=== PATIENT | female | born 1995 | race American Indian/Alaskan Native ===

== ENCOUNTER 2018-08-16 13:57 | Emergency (ER) | payer MEDICAID ==
[2018-08-16 14:06] VITALS: BP 138/93
--- NOTE | 2018-08-16 14:06 | Emergency Department Report ---
Blank Doc - Documentation Documentation: This is a 22-year-old female that presents with syncopal episode x1. Denies any other complaints or symptoms. This initial assessment/diagnostic orders/clinical plan/treatment(s) is/are subject to change based on patient's health status, clinical progression and re-assessment by fellow clinical providers in the ED. Further treatment and workup at subsequent clinical providers discretion. Patient/guardians urged not to elope from the ED as their condition may be serious if not clinically assessed and managed. Initial orders include: 1- Patient sent to MAIN ED for further evaluation and treatment 2- labs 3- CT head
[2018-08-16 14:57] LABS: Basophils % (Auto) 0.4 % (0.0-1.8); Eosinophils # (Auto) 0.1 K/mm3 (0.0-0.4); Eosinophils % (Auto) 1.2 % (0.0-4.3); Hematocrit 32.1 % (30.3-42.9); Hemoglobin 10.1 gm/dl (10.1-14.3); Lymphocytes # (Auto) 1.6 K/mm3 (1.2-5.4); Lymphocytes % (Auto) 21.3 % (13.4-35.0); Mean Corpuscular HGB Conc 31 % (30-34); Mean Corpuscular Volume 79 fl (79-97); Monocytes # (Auto) 0.7 K/mm3 (0.0-0.8); Monocytes % (Auto) 8.9 % (0.0-7.3); Platelet Count 313 K/mm3 (140-440); Red Blood Count 4.08 M/mm3 (3.65-5.03)
[2018-08-16 15:05] LABS: Red Cell Distribution Width 20.4 % (13.2-15.2)
[2018-08-16 15:08] LABS: INR 1.06 (0.87-1.13)
[2018-08-16 15:18] LABS: Alanine Aminotransferase 12 units/L (7-56); Albumin 3.7 g/dL (3.9-5); BUN/Creatinine Ratio 10; Blood Urea Nitrogen 7 mg/dL (7-17); Calcium 8.7 mg/dL (8.4-10.2); Hemolysis Index 1
[2018-08-16 15:21] LABS: Creatine Kinase MB < 1.0 ng/mL (0.0-4.0)
--- NOTE | 2018-08-16 15:45 | Emergency Department Report ---
ED Syncope HPI - General Chief Complaint: Syncope Stated Complaint: SYNCOPE Time Seen by Provider: 08/16/18 14:04 Source: patient - History of Present Illness Initial Comments: 22-year-old female presents to the ED following a syncopal episode at home. Patient says she has had a 2 month history of dizziness and lightheadedness. Today, patient states she was in the bathroom having a bowel movement. Patient states she became lightheaded while sitting on the toilet. She then got up and laid down across the bed approximately 5 minutes. Patient states when she stood up to walk to the next room, she then passed out. Patient reports she was told by Wilian that she has fluid on her left ear, which could be the cause of her dizziness. Patient also reports she has history of chronic migraine headaches. Timing/Prior Episodes: recent history Precipitating Factors: Positive: lightheadedness Context: sitting, standing Loss of Consciousness: brief (seconds) Current Symptoms: back to normal. denies: chest pain, headache, loss of bladder control, loss of bowel control - Related Data Allergies/Adverse Reactions: Allergies No Known Allergies Allergy (Unverified 08/16/18 14:00) Home Medications: Ambulatory Orders Butalb/Acetamin/Caff 50-325-40 [Fioricet] 1 tab PO Q6HR PRN #10 tab 08/16/18 Meclizine [Antivert] 25 mg PO TID PRN #20 tablet 08/16/18 ED Review of Systems ROS: Stated complaint: SYNCOPE Other details as noted in HPI Comment: All other systems reviewed and negative Constitutional: denies: chills, fever ENT: ear pain Respiratory: denies: shortness of breath Cardiovascular: denies: chest pain, palpitations Gastrointestinal: denies: abdominal pain, nausea, vomiting, diarrhea Neurological: vertigo. denies: headache, weakness, numbness, paresthesias ED Past Medical Hx - Past Medical History Previous Medical History?: No - Surgical History Past Surgical History?: Yes Additional Surgical History: C section - Social History Smoking Status: Never Smoker Substance Use Type: None - Medications Home Medications: Home Medications Medication Instructions Recorded Confirmed Last Taken Type Butalb/Acetamin/Caff 50-325-40 1 tab PO Q6HR PRN #10 tab 08/16/18 Unknown Rx [Fioricet] Meclizine [Antivert] 25 mg PO TID PRN #20 tablet 08/16/18 Unknown Rx ED Physical Exam - General Limitations: No Limitations General appearance: alert, in no apparent distress, obese - Head Head exam: Present: atraumatic, normocephalic - Eye Eye exam: Present: normal appearance - ENT ENT exam: Present: mucous membranes moist - Neck Neck exam: Present: normal inspection - Respiratory Respiratory exam: Present: normal lung sounds bilaterally. Absent: respiratory distress - Cardiovascular Cardiovascular Exam: Present: regular rate, normal rhythm - GI/Abdominal GI/Abdominal exam: Present: soft. Absent: distended, tenderness - Extremities Exam Extremities exam: Present: normal inspection - Neurological Exam Neurological exam: Present: alert, oriented X3, CN II-XII intact. Absent: motor sensory deficit - Psychiatric Psychiatric exam: Present: normal affect, normal mood - Skin Skin exam: Present: warm, dry, intact, normal color ED Course Vital Signs 08/16/18 14:05 Temperature 98.0 F Pulse Rate 89 Respiratory 18 Rate Blood Pressure 138/93 O2 Sat by Pulse 100 Oximetry ED Medical Decision Making - Lab Data Result diagrams: 08/16/18 14:25 08/16/18 14:25 - EKG Data -: EKG Interpreted by Ks EKG shows normal: sinus rhythm, axis, intervals, QRS complexes, ST-T waves Rate: normal - EKG Data Interpretation: no acute changes - Radiology Data Radiology results: report reviewed, image reviewed - Differential Diagnosis vertigo, arrythmia, dehydration, vasovagal Critical care attestation.: If time is entered above; I have spent that time in minutes in the direct care of this critically ill patient, excluding procedure time. ED Disposition Clinical Impression: Syncope, Vertigo Disposition: DC-01 TO HOME OR SELFCARE Is pt being admited?: No Condition: Stable Instructions: Vertigo (ED), Syncope (ED) Prescriptions: Meclizine [Antivert] 25 mg PO TID PRN #20 tablet PRN Reason: Vertigo Butalb/Acetamin/Caff 50-325-40 [Fioricet] 1 tab PO Q6HR PRN #10 tab PRN Reason: Headache Referrals: MIGDALIA GIRON MD [Referring] - as needed [facility] [Provider Group] - as needed CLARIBEL BRITO MD [Primary Care Provider] - as needed Time of Disposition: 16:58
[2018-08-16 16:40] LABS: Bilirubin,Urine NEG (Negative); Blood,Urine NEG (Negative); Color,Urine Straw (Yellow); Protein,Urine <15 mg/dL mg/dL (Negative); Urobilinogen,Urine < 2.0 mg/dL (<2.0)
--- NOTE | 2018-08-16 16:43 | Cat Scan Report ---
PROCEDURE: CT HEAD/BRAIN WO CON TECHNIQUE: Spiral CT imaging of the brain was obtained without IV contrast. HISTORY: Syncope COMPARISONS: FINDINGS: Brain: Brain density appears normal. No evidence of intracranial hemorrhage. No parenchymal hemorr flash, mass lesions or mass effect are seen. No abnormal extra-axial fluid collects or masses are see n. Ventricles: Ventricles are normal size and are midline. Bone Windows: No evidence of skull fracture. Paranasal sinuses: Visualized portions are clear.. Mastoid air cells: Clear. IMPRESSION: Negative exam. This document is electronically signed by Brady Henry MD., Aug 16 2018 04:41:07 PM ET
== END 2018-08-16 17:19 | disposition home or self-care (01) ==
LOC: ED 13:57
DX: R55 Syncope and collapse (principal); R42 Dizziness and giddiness
CPT/HCPCS: 36415; 70450; 80053; 81001; 82550; 82553; 84484; 84703; 85025; 85610; 85730; 93005; 93010

== ENCOUNTER 2018-09-12 17:04 | Emergency (ER) | payer MEDICAID ==
--- NOTE | 2018-09-12 17:17 | Emergency Department Report ---
Chief Complaint: Earache Stated Complaint: DIZZY/EAR PAIN Time Seen by Provider: 09/12/18 17:14 - HPI History of Present Illness: This is a 22 y.o. F that presents to the ER with left ear pain and dizziness. Patient states she diagnosed with Otitis media in June and didn't complete medication because she lost pills while at work. Patient states she was feeling better until today. - Exam Vital Signs: Vital Signs 09/12/18 17:15 Temperature 98.3 F Pulse Rate 114 H Respiratory 18 Rate Blood Pressure 168/100 O2 Sat by Pulse 100 Oximetry MSE screening note: Focused history and physical exam performed. Due to findings the following was ordered: This initial assessment/diagnostic orders/clinical plan/treatment(s) is/are subject to change based on patient's health status, clinical progression and re- assessment by fellow clinical providers in the ED. Further treatment and workup at subsequent clinical providers discretion. Patient/guardians urged not to elope from the ED as their condition may be serious if not clinically assessed and managed. Initial orders include: 1- Patient sent to [facility] for further evaluation and treatment ED Disposition for MSE Condition: Stable
--- NOTE | 2018-09-12 19:42 | Emergency Department Report ---
ED General Adult HPI - General Chief complaint: Earache Stated complaint: DIZZY/EAR PAIN Time Seen by Provider: 09/12/18 17:14 Source: patient, EMS Mode of arrival: Ambulatory Limitations: No Limitations - History of Present Illness Initial comments: 22-year-old female to emergency department complaining of pain to the left ear that has been off-and-on since June. She was initially seen at [facility] which she was prescribed some anti-biotics, however, she did not complete the anabiotic as directed. She was seen here as well. Earlier this month where she receives some headache medications and some meclizine. She is utilize all of the meclizine stating that her pressure is causing her to feel occasional dizziness. Dizziness occurs primarily when she turns her head or when she is in motion. Is not associated with any ringing in the ears or fever. She reports no hemoptysis or hematemesis. No odynophagia or dysphagia. No neck swelling. No numbness or tingling. No nausea or vomiting. Also reports cold symptoms with throat irritation and nasal discharge clear -: Gradual Radiation: non-radiation Quality: dull Consistency: constant Worsens with: none Associated Symptoms: denies: cough, diaphoresis, malaise, nausea/vomiting, syncope, weakness Treatments Prior to Arrival: none - Related Data Previous Rx's Medication Instructions Recorded Last Taken Type Butalb/Acetamin/Caff 50-325-40 1 tab PO Q6HR PRN #10 tab 08/16/18 Unknown Rx [Fioricet] Meclizine [Antivert] 25 mg PO TID PRN #20 tablet 08/16/18 Unknown Rx Desloratadine/Pseudoephedrine 1 each PO BID #20 tbmp.12hr 09/12/18 Unknown Rx [Clarinex-D 12 Hour Tablet] Meclizine [Antivert] 25 mg PO TID PRN #20 tablet 09/12/18 Unknown Rx predniSONE [Deltasone] 20 mg PO QDAY #7 tab 09/12/18 Unknown Rx Allergies Allergy/AdvReac Type Severity Reaction Status Date / Time No Known Allergies Allergy Verified 09/12/18 17:05 ED Review of Systems ROS: Stated complaint: DIZZY/EAR PAIN Other details as noted in HPI Constitutional: denies: chills, fever Eyes: denies: eye pain, eye discharge, vision change ENT: denies: ear pain, throat pain Respiratory: denies: cough, shortness of breath, wheezing Cardiovascular: denies: chest pain, palpitations Endocrine: no symptoms reported Gastrointestinal: denies: abdominal pain, nausea, diarrhea Genitourinary: denies: urgency, dysuria, discharge Musculoskeletal: denies: back pain, joint swelling, arthralgia Skin: denies: rash, lesions Neurological: denies: headache, weakness, paresthesias Psychiatric: denies: anxiety, depression Hematological/Lymphatic: denies: easy bleeding, easy bruising ED Past Medical Hx - Past Medical History Previous Medical History?: No - Surgical History Additional Surgical History: C section - Social History Smoking Status: Never Smoker Substance Use Type: None - Medications Home Medications: Home Medications Medication Instructions Recorded Confirmed Last Taken Type Butalb/Acetamin/Caff 50-325-40 1 tab PO Q6HR PRN #10 tab 08/16/18 Unknown Rx [Fioricet] Meclizine [Antivert] 25 mg PO TID PRN #20 tablet 08/16/18 Unknown Rx Desloratadine/Pseudoephedrine 1 each PO BID #20 tbmp.12hr 09/12/18 Unknown Rx [Clarinex-D 12 Hour Tablet] Meclizine [Antivert] 25 mg PO TID PRN #20 tablet 09/12/18 Unknown Rx predniSONE [Deltasone] 20 mg PO QDAY #7 tab 09/12/18 Unknown Rx ED Physical Exam - General Limitations: No Limitations General appearance: alert, in no apparent distress - Head Head exam: Present: atraumatic, normocephalic - Eye Eye exam: Present: normal appearance, PERRL, EOMI - ENT ENT exam: Present: normal exam, mucous membranes moist, other (neck there is bulging have small effusion. Bilateral sinus congestion with left maxillary sinus pressure percussion. Posterior pharynx clear. Tongue and uvula is midline) - Neck Neck exam: Present: normal inspection, full ROM. Absent: tenderness, lymphadenopathy - Respiratory Respiratory exam: Present: normal lung sounds bilaterally. Absent: respiratory distress, rales, rhonchi, chest wall tenderness, accessory muscle use, prolonged expiratory - Cardiovascular Cardiovascular Exam: Present: regular rate, normal rhythm. Absent: systolic murmur, diastolic murmur, rubs, gallop - GI/Abdominal GI/Abdominal exam: Present: soft, normal bowel sounds - Extremities Exam Extremities exam: Present: normal inspection, full ROM - Back Exam Back exam: Present: normal inspection - Neurological Exam Neurological exam: Present: alert, oriented X3, CN II-XII intact, normal gait - Psychiatric Psychiatric exam: Present: normal affect, normal mood - Skin Skin exam: Present: warm, dry, intact, normal color. Absent: rash ED Course Vital Signs 09/12/18 17:15 Temperature 98.3 F Pulse Rate 114 H Respiratory 18 Rate Blood Pressure 168/100 O2 Sat by Pulse 100 Oximetry Critical care attestation.: If time is entered above; I have spent that time in minutes in the direct care of this critically ill patient, excluding procedure time. ED Disposition Clinical Impression: Dizziness, Otalgia, Sinus congestion Disposition: - TO HOME OR SELFCARE Is pt being admited?: No Does the pt Need Aspirin: No Condition: Stable Instructions: Vertigo (ED), Dizziness (ED), Earache (ED), Cold Symptoms (ED) Referrals: CLARIBEL BRITO MD [Primary Care Provider] - 3-5 Days
[2018-09-12] MEDS ORDERED: TYLENOL PO ONE (20:26)
[2018-09-12] MEDS ORDERED: TYLENOL ONE (20:29)
[2018-09-13 04:53] VITALS: BP 137/85
== END 2018-09-12 21:10 | disposition home or self-care (01) ==
LOC: ED 17:04
DX: H92.02 Otalgia, left ear (principal); R42 Dizziness and giddiness; J01.00 Acute maxillary sinusitis, unspecified
CPT/HCPCS: 99283

== ENCOUNTER 2018-11-16 18:56 | Emergency (ER) | payer MEDICAID ==
--- NOTE | 2018-11-16 19:50 | Emergency Department Report ---
Blank Doc - Documentation Documentation: This is a 22-year-old female that presents with feeling anxious. Stated has h istory of this. This initial assessment/diagnostic orders/clinical plan/treatment(s) is/are subject to change based on patient's health status, clinical progression and re- assessment by fellow clinical providers in the ED. Further treatment and workup at subsequent clinical providers discretion. Patient/guardians urged not to elope from the ED as their condition may be serious if not clinically assessed and managed. Initial orders include: 1- Patient sent to [facility] for further evaluation and treatment
[2018-11-16] MEDS ORDERED: BENADRYL PO ONE (20:27)
[2018-11-16] MEDS ORDERED: REGLAN PO ONE (20:28)
--- NOTE | 2018-11-16 20:53 | Emergency Department Report ---
ED General Adult HPI - General Chief complaint: Anxiety Stated complaint: ANXIETY ATTACK Time Seen by Provider: 11/16/18 19:50 Source: patient Mode of arrival: Stretcher Limitations: No Limitations - History of Present Illness Initial comments: This is a 22-year-old female that presents with feeling anxious. Stated has history of this. states she believes anxiiety is brought on by feelings of being possible . LMP 09/21/18 state she had an but believes she may be again, pt denies abd pain no n/v no fever or chills no abd pain , vaginal pain , discharge or bleeding. There is no feeling of SI or HI Onset/Timin -: week(s) Severity scale (0 -10): 3 Quality: other (anxiety) Consistency: constant Improves with: none Worsens with: none Associated Symptoms: denies other symptoms Treatments Prior to Arrival: none - Related Data Previous Rx's Medication Instructions Recorded Last Taken Type Butalb/Acetamin/Caff 50-325-40 1 tab PO Q6HR PRN #10 tab 08/16/18 Unknown Rx [Fioricet] Meclizine [Antivert] 25 mg PO TID PRN #20 tablet 08/16/18 Unknown Rx Desloratadine/Pseudoephedrine 1 each PO BID #20 tbmp.12hr 09/12/18 Unknown Rx [Clarinex-D 12 Hour Tablet] Meclizine [Antivert] 25 mg PO TID PRN #20 tablet 09/12/18 Unknown Rx predniSONE [Deltasone] 20 mg PO QDAY #7 tab 09/12/18 Unknown Rx Nitrofurantoin Anderson/M-Cryst 100 mg PO BID 7 Days #14 capsule 11/16/18 Unknown Rx [Macrobid CAP] hydrOXYzine HCL [Atarax] 10 mg PO Q6HR #28 tablet 11/16/18 Unknown Rx Allergies Allergy/AdvReac Type Severity Reaction Status Date / Time No Known Allergies Allergy Verified 09/12/18 17:05 ED Review of Systems ROS: Stated complaint: ANXIETY ATTACK Other details as noted in HPI Constitutional: denies: chills, fever Eyes: denies: eye pain, eye discharge, vision change ENT: denies: ear pain, throat pain Respiratory: denies: cough, shortness of breath, wheezing Cardiovascular: denies: chest pain, palpitations Endocrine: no symptoms reported Gastrointestinal: denies: abdominal pain, nausea, diarrhea Genitourinary: denies: urgency, dysuria, discharge Musculoskeletal: denies: back pain, joint swelling, arthralgia Skin: denies: rash, lesions Neurological: denies: headache, weakness, paresthesias Psychiatric: anxiety. denies: depression, auditory hallucinations, visual hallucinations, homicidal thoughts, suicidal thoughts Hematological/Lymphatic: as per HPI ED Past Medical Hx - Past Medical History Hx Psychiatric Treatment: Yes (Anxiety, Panic Attack) Additional medical history: Anemia, OBesity - Surgical History Past Surgical History?: Yes Additional Surgical History: C section - Social History Smoking Status: Never Smoker Substance Use Type: None - Medications Home Medications: Home Medications Medication Instructions Recorded Confirmed Last Taken Type Butalb/Acetamin/Caff 50-325-40 1 tab PO Q6HR PRN #10 tab 08/16/18 Unknown Rx [Fioricet] Meclizine [Antivert] 25 mg PO TID PRN #20 tablet 08/16/18 Unknown Rx Desloratadine/Pseudoephedrine 1 each PO BID #20 tbmp.12hr 09/12/18 Unknown Rx [Clarinex-D 12 Hour Tablet] Meclizine [Antivert] 25 mg PO TID PRN #20 tablet 09/12/18 Unknown Rx predniSONE [Deltasone] 20 mg PO QDAY #7 tab 09/12/18 Unknown Rx Nitrofurantoin Anderson/M-Cryst 100 mg PO BID 7 Days #14 capsule 11/16/18 Unknown Rx [Macrobid CAP] hydrOXYzine HCL [Atarax] 10 mg PO Q6HR #28 tablet 11/16/18 Unknown Rx ED Physical Exam - General Limitations: No Limitations General appearance: alert, in no apparent distress - Head Head exam: Present: atraumatic, normocephalic - Eye Eye exam: Present: normal appearance, PERRL, EOMI Pupils: Present: normal accommodation - ENT ENT exam: Present: normal orophraynx, mucous membranes moist, TM's normal bilaterally, normal external ear exam - Neck Neck exam: Present: normal inspection, full ROM. Absent: tenderness, meningismus, lymphadenopathy, thyromegaly - Respiratory Respiratory exam: Present: normal lung sounds bilaterally. Absent: respiratory distress, wheezes, stridor, chest wall tenderness - Cardiovascular Cardiovascular Exam: Present: regular rate, normal rhythm, normal heart sounds - GI/Abdominal GI/Abdominal exam: Present: soft, normal bowel sounds - Rectal Rectal exam: Present: deferred - Extremities Exam Extremities exam: Present: normal inspection, full ROM, normal capillary refill. Absent: tenderness, joint swelling - Back Exam Back exam: Present: normal inspection, full ROM. Absent: tenderness, CVA tenderness (R), CVA tenderness (L), muscle spasm, paraspinal tenderness, rash noted - Neurological Exam Neurological exam: Present: alert, oriented X3, CN II-XII intact, normal gait, reflexes normal. Absent: motor sensory deficit - Psychiatric Psychiatric exam: Present: anxious. Absent: homicidal ideation, suicidal ideation - Skin Skin exam: Present: warm, dry, intact, normal color. Absent: rash ED Course Vital Signs 11/16/18 19:14 Temperature 98.6 F Pulse Rate 102 H Respiratory 18 Rate Blood Pressure 152/91 O2 Sat by Pulse 99 Oximetry ED Medical Decision Making - Lab Data Result diagrams: 11/16/18 21:04 11/16/18 21:04 Lab Results 11/16/18 11/16/18 11/16/18 Range/Units 21:04 21:04 21:30 WBC 6.7 (4.5-11.0) K/mm3 RBC 4.54 (3.65-5.03) M/mm3 Hgb 12.1 (10.1-14.3) gm/dl Hct 37.7 (30.3-42.9) % MCV 83 (79-97) fl MCH 27 L (28-32) pg MCHC 32 (30-34) % RDW 22.1 H (13.2-15.2) % Plt Count 248 (140-440) K/mm3 Lymph % (Auto) 24.5 (13.4-35.0) % Anderson % (Auto) 8.8 H (0.0-7.3) % Eos % (Auto) 1.4 (0.0-4.3) % Baso % (Auto) 0.5 (0.0-1.8) % Lymph # 1.6 (1.2-5.4) K/mm3 Anderson # 0.6 (0.0-0.8) K/mm3 Eos # 0.1 (0.0-0.4) K/mm3 Baso # 0.0 (0.0-0.1) K/mm3 Seg Neutrophils % 64.8 (40.0-70.0) % Seg Neutrophils # 4.4 (1.8-7.7) K/mm3 Sodium 139 (137-145) mmol/L Potassium 3.8 (3.6-5.0) mmol/L Chloride 104.4 (98-107) mmol/L Carbon Dioxide 25 (22-30) mmol/L Anion Gap 13 mmol/L BUN 12 (7-17) mg/dL Creatinine 0.6 L (0.7-1.2) mg/dL Estimated GFR > 60 ml/min BUN/Creatinine Ratio 20 % Glucose 93 (65-100) mg/dL Calcium 9.0 (8.4-10.2) mg/dL Urine Color Yellow (Yellow) Urine Turbidity Slightly-cloudy (Clear) Urine pH 5.0 (5.0-7.0) Ur Specific [place] 1.025 (1.003-1.030) Urine Protein 100 mg/dl (Negative) mg/dL Urine Glucose (UA) Neg (Negative) mg/dL Urine Ketones Neg (Negative) mg/dL Urine Blood Neg (Negative) Urine Nitrite Neg (Negative) Urine Bilirubin Neg (Negative) Urine Urobilinogen 2.0 (<2.0) mg/dL Ur Leukocyte Esterase Sm (Negative) Urine WBC (Auto) 3.0 (0.0-6.0) /HPF Urine RBC (Auto) 5.0 (0.0-6.0) /HPF U Epithel Cells (Auto) 8.0 (0-13.0) /HPF Urine Bacteria (Auto) 1+ (Negative) /HPF Urine Mucus Few /HPF Urine HCG, Qual Negative (Negative) Urine Opiates Screen Urine Methadone Screen Ur Barbiturates Screen Ur Phencyclidine Scrn Ur Amphetamines Screen U Benzodiazepines Scrn Urine Cocaine Screen U Marijuana (THC) Screen Drugs of Abuse Note 11/16/18 Range/Units 21:30 WBC (4.5-11.0) K/mm3 RBC (3.65-5.03) M/mm3 Hgb (10.1-14.3) gm/dl Hct (30.3-42.9) % MCV (79-97) fl MCH (28-32) pg MCHC (30-34) % RDW (13.2-15.2) % Plt Count (140-440) K/mm3 Lymph % (Auto) (13.4-35.0) % Anderson % (Auto) (0.0-7.3) % Eos % (Auto) (0.0-4.3) % Baso % (Auto) (0.0-1.8) % Lymph # (1.2-5.4) K/mm3 Anderson # (0.0-0.8) K/mm3 Eos # (0.0-0.4) K/mm3 Baso # (0.0-0.1) K/mm3 Seg Neutrophils % (40.0-70.0) % Seg Neutrophils # (1.8-7.7) K/mm3 Sodium (137-145) mmol/L Potassium (3.6-5.0) mmol/L Chloride (98-107) mmol/L Carbon Dioxide (22-30) mmol/L Anion Gap mmol/L BUN (7-17) mg/dL Creatinine (0.7-1.2) mg/dL Estimated GFR ml/min BUN/Creatinine Ratio % Glucose (65-100) mg/dL Calcium (8.4-10.2) mg/dL Urine Color (Yellow) Urine Turbidity (Clear) Urine pH (5.0-7.0) Ur Specific [place] (1.003-1.030) Urine Protein (Negative) mg/dL Urine Glucose (UA) (Negative) mg/dL Urine Ketones (Negative) mg/dL Urine Blood (Negative) Urine Nitrite (Negative) Urine Bilirubin (Negative) Urine Urobilinogen (<2.0) mg/dL Ur Leukocyte Esterase (Negative) Urine WBC (Auto) (0.0-6.0) /HPF Urine RBC (Auto) (0.0-6.0) /HPF U Epithel Cells (Auto) (0-13.0) /HPF Urine Bacteria (Auto) (Negative) /HPF Urine Mucus /HPF Urine HCG, Qual (Negative) Urine Opiates Screen Presumptive negative Urine Methadone Screen Presumptive negative Ur Barbiturates Screen Presumptive negative Ur Phencyclidine Scrn Presumptive negative Ur Amphetamines Screen Presumptive negative U Benzodiazepines Scrn Presumptive negative Urine Cocaine Screen Presumptive negative U Marijuana (THC) Screen Presumptive negative Drugs of Abuse Note Disclamer - Medical Decision Making labs noted ua: pos luek, bacteria plan macrobid for same atarax refill, there is no SI no HI anxiet relieved with negative preg test pt will follow up with pcp in 2-3 days return to ed if symptoms worsen. Critical care attestation.: If time is entered above; I have spent that time in minutes in the direct care of this critically ill patient, excluding procedure time. ED Disposition Clinical Impression: Stress UTI (urinary tract infection) Qualifiers: Urinary tract infection type: acute cystitis Hematuria presence: without hematuria Qualified Code(s): N30.00 - Acute cystitis without hematuria Disposition: TO HOME OR SELFCARE Is pt being admited?: No Does the pt Need Aspirin: No Condition: Stable Instructions: Urinary Tract Infection in Women (ED), Stress (ED) Prescriptions: hydrOXYzine HCL [Atarax] 10 mg PO Q6HR #28 tablet Nitrofurantoin Anderson/M-Cryst [Macrobid CAP] 100 mg PO BID 7 Days #14 capsule Referrals: [facility] [Outside] - 3-5 Days [facility] [Outside] - 3-5 Days Forms: Work/School Release Form(ED) Time of Disposition: 23:07
[2018-11-16 21:19] LABS: Basophils % (Auto) 0.5 % (0.0-1.8); Eosinophils # (Auto) 0.1 K/mm3 (0.0-0.4); Eosinophils % (Auto) 1.4 % (0.0-4.3); Hematocrit 37.7 % (30.3-42.9); Hemoglobin 12.1 gm/dl (10.1-14.3); Lymphocytes # (Auto) 1.6 K/mm3 (1.2-5.4); Lymphocytes % (Auto) 24.5 % (13.4-35.0); Mean Corpuscular HGB Conc 32 % (30-34); Mean Corpuscular Volume 83 fl (79-97); Monocytes # (Auto) 0.6 K/mm3 (0.0-0.8); Monocytes % (Auto) 8.8 % (0.0-7.3); Platelet Count 248 K/mm3 (140-440); Red Blood Count 4.54 M/mm3 (3.65-5.03); Red Cell Distribution Width 22.1 % (13.2-15.2)
[2018-11-16 21:32] LABS: BUN/Creatinine Ratio 20; Blood Urea Nitrogen 12 mg/dL (7-17); Hemolysis Index 10
[2018-11-16 21:48] LABS: Amphetamine Screen,Urine PRESUMPTIVE NEGATIVE; Benzodiazepines Screen,Urine PRESUMPTIVE NEGATIVE; Cannabinoid Screen,Urine PRESUMPTIVE NEGATIVE; Cocaine Screen,Urine PRESUMPTIVE NEGATIVE; Methadone Screen,Urine PRESUMPTIVE NEGATIVE; Opiate Screen,Urine PRESUMPTIVE NEGATIVE
[2018-11-16 21:49] LABS: Bacteria,Urine 1+ /HPF (Negative); Bilirubin,Urine NEG (Negative); Blood,Urine NEG (Negative); Color,Urine Yellow (Yellow); HCG Qualitative,Urine Negative (Negative); Mucus,Urine FEW /HPF
[2018-11-16 23:54] VITALS: BP 142/80
== END 2018-11-16 23:10 | disposition home or self-care (01) ==
LOC: ED 18:56
DX: N39.0 Urinary tract infection, site not specified (principal); F43.9 Reaction to severe stress, unspecified; F41.0 Panic disorder [episodic paroxysmal anxiety]; D64.9 Anemia, unspecified; E66.01 Morbid (severe) obesity due to excess calories; Z68.42 Body mass index [BMI] 45.0-49.9, adult; Z79.899 Other long term (current) drug therapy
CPT/HCPCS: 36415; 80048; 80307; 81001; 81025; 85025

== ENCOUNTER 2018-12-22 02:29 | Emergency (ER) | payer MEDICAID ==
[2018-12-22 02:51] VITALS: BP 132/81
[2018-12-22] MEDS ORDERED: DECADRON IM ONE (04:05)
--- NOTE | 2018-12-22 05:38 | Emergency Department Report ---
ED General Adult HPI - General Chief complaint: Dyspnea/Respdistress Stated complaint: CAROLYNN Source: patient Mode of arrival: Ambulatory Limitations: No Limitations - History of Present Illness Initial comments: Patient is a 23 year-old female with a history of chronic swollen tonsils present to the ED with persistently swollen and worsening tonsillar swelling for the last 6 hours. Patient states that she felt as if she was not able to breathe because of swollen tonsils. Patient states that she has an appointment for tonsillectomy in 3 days' time and wanted to be evaluated for any worsening symptoms. Patient denies dizziness, chest pain, shortness of breath, abdominal pain, dysphasia, dysphonia, dizziness, nausea, vomiting, fever and chills or sore throat. MD Complaint: swollen tonsils -: Gradual, month(s) (6) Location: mouth Radiation: non-radiation Severity scale (0 -10): 0 Quality: dull Consistency: intermittent Improves with: none Worsens with: eating Associated Symptoms: denies other symptoms. denies: confusion, chest pain, cough, diaphoresis, fever/chills, headaches, loss of appetite, shortness of breath, syncope, weakness Treatments Prior to Arrival: none - Related Data Previous Rx's Medication Instructions Recorded Last Taken Type Butalb/Acetamin/Caff 50-325-40 1 tab PO Q6HR PRN #10 tab 08/16/18 Unknown Rx [Fioricet] Meclizine [Antivert] 25 mg PO TID PRN #20 tablet 08/16/18 Unknown Rx Desloratadine/Pseudoephedrine 1 each PO BID #20 tbmp.12hr 09/12/18 Unknown Rx [Clarinex-D 12 Hour Tablet] Meclizine [Antivert] 25 mg PO TID PRN #20 tablet 09/12/18 Unknown Rx predniSONE [Deltasone] 20 mg PO QDAY #7 tab 09/12/18 Unknown Rx Nitrofurantoin [place]/M-Cryst 100 mg PO BID 7 Days #14 capsule 11/16/18 Unknown Rx [Macrobid CAP] hydrOXYzine HCL [Atarax] 10 mg PO Q6HR #28 tablet 11/16/18 Unknown Rx Esomeprazole Magnesium [NexIUM] 40 mg PO QDAY 15 Days #15 12/07/18 Unknown Rx capsule. Ondansetron [Zofran Odt] 4 mg PO Q8HR PRN #12 tab.rapdis 12/07/18 Unknown Rx Lidocaine Viscous 2% 10 ml PO Q6H PRN #120 ml 12/22/18 Unknown Rx Allergies Allergy/AdvReac Type Severity Reaction Status Date / Time No Known Allergies Allergy Verified 12/07/18 19:03 ED Review of Systems ROS: Stated complaint: CAROLYNN Other details as noted in HPI Constitutional: denies: chills, fever Eyes: denies: eye pain, eye discharge, vision change ENT: other (tonsillar swelling). denies: ear pain, throat pain Respiratory: denies: cough, shortness of breath, wheezing Cardiovascular: denies: chest pain, palpitations Endocrine: no symptoms reported Gastrointestinal: denies: abdominal pain, nausea, diarrhea Genitourinary: denies: urgency, dysuria, discharge Musculoskeletal: denies: back pain, joint swelling, arthralgia Skin: denies: rash, lesions Neurological: denies: headache, weakness, paresthesias Psychiatric: denies: anxiety, depression Hematological/Lymphatic: denies: easy bleeding, easy bruising ED Past Medical Hx - Past Medical History Previous Medical History?: Yes Hx Psychiatric Treatment: Yes (Anxiety, Panic Attack) Additional medical history: Anemia, OBesity - Surgical History Past Surgical History?: Yes Additional Surgical History: C section - Social History Smoking Status: Never Smoker Substance Use Type: None - Medications Home Medications: Home Medications Medication Instructions Recorded Confirmed Last Taken Type Butalb/Acetamin/Caff 50-325-40 1 tab PO Q6HR PRN #10 tab 08/16/18 Unknown Rx [Fioricet] Meclizine [Antivert] 25 mg PO TID PRN #20 tablet 08/16/18 Unknown Rx Desloratadine/Pseudoephedrine 1 each PO BID #20 tbmp.12hr 09/12/18 Unknown Rx [Clarinex-D 12 Hour Tablet] Meclizine [Antivert] 25 mg PO TID PRN #20 tablet 09/12/18 Unknown Rx predniSONE [Deltasone] 20 mg PO QDAY #7 tab 09/12/18 Unknown Rx Nitrofurantoin [place]/M-Cryst 100 mg PO BID 7 Days #14 capsule 11/16/18 Unknown Rx [Macrobid CAP] hydrOXYzine HCL [Atarax] 10 mg PO Q6HR #28 tablet 11/16/18 Unknown Rx Esomeprazole Magnesium [NexIUM] 40 mg PO QDAY 15 Days #15 12/07/18 Unknown Rx capsule. Ondansetron [Zofran Odt] 4 mg PO Q8HR PRN #12 tab.rapdis 12/07/18 Unknown Rx Lidocaine Viscous 2% 10 ml PO Q6H PRN #120 ml 12/22/18 Unknown Rx ED Physical Exam - General Limitations: No Limitations General appearance: alert, in no apparent distress - Head Head exam: Present: atraumatic, normocephalic, normal inspection - Eye Eye exam: Present: normal appearance, PERRL, EOMI. Absent: scleral icterus, conjunctival injection Pupils: Present: normal accommodation - ENT ENT exam: Present: normal exam, mucous membranes moist, TM's normal bilaterally, normal external ear exam, other (Prominently swollen tonsils, patent airway) - Neck Neck exam: Present: normal inspection, full ROM. Absent: tenderness, meningismus, lymphadenopathy - Respiratory Respiratory exam: Present: normal lung sounds bilaterally. Absent: respiratory distress, wheezes, rhonchi, stridor, chest wall tenderness, accessory muscle use, decreased breath sounds, prolonged expiratory - Cardiovascular Cardiovascular Exam: Present: regular rate, normal rhythm, normal heart sounds. Absent: systolic murmur, diastolic murmur, rubs, gallop - GI/Abdominal GI/Abdominal exam: Present: soft, normal bowel sounds. Absent: distended, guarding, rebound, hyperactive bowel sounds, organomegaly, mass - Rectal Rectal exam: Present: deferred - Extremities Exam Extremities exam: Present: normal inspection, full ROM, normal capillary refill - Back Exam Back exam: Present: normal inspection, full ROM. Absent: tenderness, CVA tenderness (R), CVA tenderness (L), muscle spasm, paraspinal tenderness, vertebral tenderness - Neurological Exam Neurological exam: Present: alert, oriented X3, CN II-XII intact, normal gait, reflexes normal - Psychiatric Psychiatric exam: Present: normal affect, normal mood, anxious - Skin Skin exam: Present: warm, dry, intact, normal color. Absent: rash ED Course Vital Signs 12/22/18 02:37 Temperature 98.2 F Pulse Rate 86 Respiratory 16 Rate Blood Pressure 132/81 O2 Sat by Pulse 98 Oximetry - Reevaluation(s) Reevaluation #1: 12/22/18 05:42 Patient is alert and oriented 3 and is not in distress with normal vital signs. The airway is patent and patient is in no acute distress. The physical exam shows prominent swollen bilateral tonsils with no airway obstruction. Patient's oxygen saturation on room air 98%. Patient had an appointment. Heart ENT physician in 3 days time fall tonsillectomy procedure. Patient was advised to ensure that she keep that appointment as scheduled. Patient was discharged home and advised to follow-up with ENT physician as previously scheduled or return to the ED immediately if symptoms get worse. ED Medical Decision Making - Medical Decision Making Patient is alert and oriented 3 and is not in distress with normal vital signs. The airway is patent and patient is in no acute distress. The physical exam shows prominent swollen bilateral tonsils with no airway obstruction. Patient's oxygen saturation on room air 98%. Patient had an appointment. Heart ENT physician in 3 days time fall tonsillectomy procedure. Patient was advised to ensure that she keep that appointment as scheduled. Patient was discharged home and advised to follow-up with ENT physician as previously scheduled or return to the ED immediately if symptoms get worse. - Differential Diagnosis Swollen tonsils; tonsillitis; pharyngitis Critical care attestation.: If time is entered above; I have spent that time in minutes in the direct care of this critically ill patient, excluding procedure time. ED Disposition Clinical Impression: Swelling of tonsil Disposition: DC-01 TO HOME OR SELFCARE Is pt being admited?: No Does the pt Need Aspirin: No Condition: Stable Instructions: Tonsillitis (ED) Additional Instructions: Follow-up with the ENT physician as previously scheduled for the tonsillectomy procedure. Return to the ED immediately if symptoms get worse. Prescriptions: Lidocaine Viscous 2% 10 ml PO Q6H PRN #120 ml PRN Reason: Pain , Severe (7-10) Referrals: PRIMARY CARE,MD [Primary Care Provider] - 3-5 Days Time of Disposition: 05:34 Print Language: [place]ET[place]ESE
== END 2018-12-22 06:00 | disposition home or self-care (01) ==
LOC: ED 02:29
DX: J03.90 Acute tonsillitis, unspecified (principal); F41.9 Anxiety disorder, unspecified; Z79.899 Other long term (current) drug therapy; Z86.2 Personal history of diseases of the blood and blood-forming organs and certain disorders involving the immune mechanism
CPT/HCPCS: 96372; 99283; J1100

== ENCOUNTER 2019-06-04 19:43 | Emergency (ER) | payer SELFPAY ==
[2019-06-04 20:00] VITALS: BP 150/87
--- NOTE | 2019-06-04 21:00 | Emergency Department Report ---
Blank Doc - Documentation Documentation: 23-year-old female that presents with abd pain and right hip pain s/p fall. D enies any other injuries. This initial assessment/diagnostic orders/clinical plan/treatment(s) is/are subject to change based on patient's health status, clinical progression and re- assessment by fellow clinical providers in the ED. Further treatment and workup at subsequent clinical providers discretion. Patient/guardians urged not to elope from the ED as their condition may be serious if not clinically assessed and managed. Initial orders include: 1- Patient sent to [facility] for further evaluation and treatment 2- labs 3- xrays
[2019-06-04 22:17] LABS: Basophils % (Auto) 0.4 % (0.0-1.8); Eosinophils # (Auto) 0.2 K/mm3 (0.0-0.4); Eosinophils % (Auto) 3.2 % (0.0-4.3); Hematocrit 32.6 % (30.3-42.9); Hemoglobin 10.9 gm/dl (10.1-14.3); Lymphocytes # (Auto) 2.4 K/mm3 (1.2-5.4); Lymphocytes % (Auto) 32.4 % (13.4-35.0); Mean Corpuscular HGB Conc 33 % (30-34); Mean Corpuscular Volume 84 fl (79-97); Monocytes # (Auto) 0.6 K/mm3 (0.0-0.8); Monocytes % (Auto) 7.5 % (0.0-7.3); Platelet Count 274 K/mm3 (140-440); Red Blood Count 3.88 M/mm3 (3.65-5.03); Red Cell Distribution Width 15.8 % (13.2-15.2)
[2019-06-04 22:45] LABS: Alanine Aminotransferase 7 units/L (7-56); BUN/Creatinine Ratio 4; Blood Urea Nitrogen 3 mg/dL (7-17); Calcium 9.4 mg/dL (8.4-10.2); Hemolysis Index 1
--- NOTE | 2019-06-04 23:34 | Emergency Department Report ---
ED General Adult HPI - General Chief complaint: Fall Stated complaint: FELL/BODY PAIN Time Seen by Provider: 06/04/19 21:00 Source: patient Mode of arrival: Ambulatory Limitations: No Limitations - History of Present Illness Initial comments: This is a 23-year-old female who presents to ED complaining of lower abdominal and right-sided pain status post fall that happened yesterday. Patient states she slipped and fell in the mud area. Patient states that this morning she started to feel some soreness to the abdominal area and right thigh. Patient denies hitting her head or neck during fall. Patient rates pain about a 6 out of 10. Patient states pain is localized to her lower abdomen region She denies nausea vomiting diarrhea vaginal bleeding or any other abnormal - Related Data Previous Rx's Medication Instructions Recorded Last Taken Type Butalb/Acetamin/Caff 50-325-40 1 tab PO Q6HR PRN #10 tab 08/16/18 Unknown Rx [Fioricet] Meclizine [Antivert] 25 mg PO TID PRN #20 tablet 08/16/18 Unknown Rx Desloratadine/Pseudoephedrine 1 each PO BID #20 tbmp.12hr 09/12/18 Unknown Rx [Clarinex-D 12 Hour Tablet] Meclizine [Antivert] 25 mg PO TID PRN #20 tablet 09/12/18 Unknown Rx predniSONE [Deltasone] 20 mg PO QDAY #7 tab 09/12/18 Unknown Rx Nitrofurantoin [place]/M-Cryst 100 mg PO BID 7 Days #14 capsule 11/16/18 Unknown Rx [Macrobid CAP] hydrOXYzine HCL [Atarax] 10 mg PO Q6HR #28 tablet 11/16/18 Unknown Rx Esomeprazole Magnesium [NexIUM] 40 mg PO QDAY 15 Days #15 12/07/18 Unknown Rx capsule. Ondansetron [Zofran Odt] 4 mg PO Q8HR PRN #12 tab.rapdis 12/07/18 Unknown Rx Lidocaine Viscous 2% 10 ml PO Q6H PRN #120 ml 12/22/18 Unknown Rx Cyclobenzaprine [Flexeril] 10 mg PO QHS PRN #15 tablet 06/05/19 Unknown Rx Ibuprofen [Motrin] 800 mg PO Q8HR #30 tablet 06/05/19 Unknown Rx Allergies Allergy/AdvReac Type Severity Reaction Status Date / Time No Known Allergies Allergy Verified 12/07/18 19:03 ED Review of Systems ROS: Stated complaint: FELL/BODY PAIN Other details as noted in HPI Comment: All other systems reviewed and negative ED Past Medical Hx - Past Medical History Hx Psychiatric Treatment: Yes (Anxiety, Panic Attack) Additional medical history: Anemia, OBesity - Surgical History Additional Surgical History: C section - Social History Smoking Status: Never Smoker Substance Use Type: None - Medications Home Medications: Home Medications Medication Instructions Recorded Confirmed Last Taken Type Butalb/Acetamin/Caff 50-325-40 1 tab PO Q6HR PRN #10 tab 08/16/18 Unknown Rx [Fioricet] Meclizine [Antivert] 25 mg PO TID PRN #20 tablet 08/16/18 Unknown Rx Desloratadine/Pseudoephedrine 1 each PO BID #20 tbmp.12hr 09/12/18 Unknown Rx [Clarinex-D 12 Hour Tablet] Meclizine [Antivert] 25 mg PO TID PRN #20 tablet 09/12/18 Unknown Rx predniSONE [Deltasone] 20 mg PO QDAY #7 tab 09/12/18 Unknown Rx Nitrofurantoin [place]/M-Cryst 100 mg PO BID 7 Days #14 capsule 11/16/18 Unknown Rx [Macrobid CAP] hydrOXYzine HCL [Atarax] 10 mg PO Q6HR #28 tablet 11/16/18 Unknown Rx Esomeprazole Magnesium [NexIUM] 40 mg PO QDAY 15 Days #15 12/07/18 Unknown Rx capsule. Ondansetron [Zofran Odt] 4 mg PO Q8HR PRN #12 tab.rapdis 12/07/18 Unknown Rx Lidocaine Viscous 2% 10 ml PO Q6H PRN #120 ml 12/22/18 Unknown Rx Cyclobenzaprine [Flexeril] 10 mg PO QHS PRN #15 tablet 06/05/19 Unknown Rx Ibuprofen [Motrin] 800 mg PO Q8HR #30 tablet 06/05/19 Unknown Rx ED Physical Exam - General Limitations: No Limitations General appearance: alert, in no apparent distress - Head Head exam: Present: atraumatic, normocephalic - Eye Eye exam: Present: normal appearance - ENT ENT exam: Present: mucous membranes moist - Neck Neck exam: Present: normal inspection - Respiratory Respiratory exam: Present: normal lung sounds bilaterally. Absent: respiratory distress - Cardiovascular Cardiovascular Exam: Present: regular rate, normal rhythm. Absent: systolic murmur, diastolic murmur, rubs, gallop - GI/Abdominal GI/Abdominal exam: Present: soft, tenderness (Mild tenderness to palpation of lower abdomen, no ecchymoses,), normal bowel sounds. Absent: distended, guarding - Extremities Exam Extremities exam: Present: normal inspection - Back Exam Back exam: Present: normal inspection - Neurological Exam Neurological exam: Present: alert, oriented X3 - Psychiatric Psychiatric exam: Present: normal affect, normal mood - Skin Skin exam: Present: warm, dry, intact, normal color. Absent: rash ED Course Vital Signs 06/04/19 06/04/19 19:58 21:01 Temperature 98.6 F 98.6 F Pulse Rate 93 H 86 Respiratory 18 18 Rate Blood Pressure 150/87 150/87 O2 Sat by Pulse 100 100 Oximetry ED Medical Decision Making - Lab Data Result diagrams: 06/04/19 21:43 06/04/19 21:43 - Radiology Data Radiology results: report reviewed, image reviewed A ABDOMEN 2 VIEW(S) INDICATION / CLINICAL INFORMATION: pain to lower abd. COMPARISON: None available. FINDINGS: TUBES / LINES: None. BOWEL GAS PATTERN/EXTRALUMINAL GAS: No significant abnormality. No free air is seen. ADDITIONAL FINDINGS: No significant additional findings. IMPRESSION: 1. No acute abnormality. Signer Name: Scottie Garcia MD Signed: 06/05/2019 12:03 AM Workstation Name: [id number] Transcribed By: SS Dictated By: Scottie Gacria MD Electronically Authenticated By: Scottie Garcia MD Signed Date/Time: 06/05/19 0003 - Medical Decision Making This 23-year-old female presents the ED with abdominal tenderness status post fall All labs within normal limits, x-ray shows no acute findings. Discussed with patient to apply heat 3 times a day to affected muscles. Discussed Motrin as needed every 8 hours for pain. Discussed follow-up with primary care physician Critical care attestation.: If time is entered above; I have spent that time in minutes in the direct care of this critically ill patient, excluding procedure time. ED Disposition Clinical Impression: Fall, Abdominal pain, Abdominal muscle pain Disposition: - TO HOME OR SELFCARE Is pt being admited?: No Does the pt Need Aspirin: No Condition: Stable Instructions: Trigger Point Pain (ED), Musculoskeletal Pain (ED) Additional Instructions: Make sure to follow up with the primary care physician as discussed. Take all your medications as you've been prescribed. If you have any worsening symptoms or develop new symptoms please return to ED immediately. Prescriptions: Cyclobenzaprine [Flexeril] 10 mg PO QHS PRN #15 tablet PRN Reason: Muscle Spasm Ibuprofen [Motrin] 800 mg PO Q8HR #30 tablet Referrals: PRIMARY CARE, [Primary Care Provider] - 3-5 Days [facility] [Outside] - 3-5 Days [facility] [Outside] - 3-5 Days Forms: Accompanied Note, Work/School Release Form(ED) Time of Disposition: 00:43
--- NOTE | 2019-06-05 00:07 | XRay Report ---
ABDOMEN 2 VIEW(S) INDICATION / CLINICAL INFORMATION: pain to lower abd. COMPARISON: None available. FINDINGS: TUBES / LINES: None. BOWEL GAS PATTERN/EXTRALUMINAL GAS: No significant abnormality. No free air is seen. ADDITIONAL FINDINGS: No significant additional findings. IMPRESSION: 1. No acute abnormality. Signer Name: Scottie Garcia MD Signed: 06/05/2019 12:03 AM Workstation Name: [id number]
== END 2019-06-05 01:02 | disposition home or self-care (01) ==
LOC: ED 19:43
DX: R10.31 Right lower quadrant pain (principal); F41.9 Anxiety disorder, unspecified; W01.0XXA Fall on same level from slipping, tripping and stumbling without subsequent striking against object, initial encounter; Y93.89 Activity, other specified; Y92.89 Other specified places as the place of occurrence of the external cause; Y99.8 Other external cause status
CPT/HCPCS: 36415; 74019; 80053; 84703; 85025; 99283